=== PATIENT | male | born 1950 | race Caucasian/White ===

== ENCOUNTER → 2021-03-02 | Outpatient (CLI) | payer MEDICAID, MEDICARE ==
[~2021-03-02] MED LIST: AMLO-213 PO; DIAZ5TAB4 PO; HYDR-4354 PO; HYDR25TA4 PO; LOVA20TA2 PO
[2021-03-02 13:27] LABS: BILIRUBIN,URINE SMALL (NEGATIVE); COLOR,URINE DARK YELLOW (YELLOW); LEUKOCYTE ESTERASE ,URINE NEGATIVE (NEGATIVE); NITRITE, URINE NEGATIVE (NEGATIVE); PROTEIN,URINE NEGATIVE (NEGATIVE); UGLUCOSE NEGATIVE (NEGATIVE)
[2021-03-02 13:33] LABS: EOSINOPHILS % (AUTO) 2.4 % (0.0-6.0); HEMATOCRIT 43 % (39-51); HEMOGLOBIN 14.4 g/dL (13.5-17.5); LYMPHOCYTES # (AUTO) 1.2 /CMM (0.8-4.8); MEAN CORPUSCULAR HGB CONC 34 g/dl (31.0-36.0); MEAN CORPUSCULAR VOLUME 93 fL (80-96); MONOCYTES # (AUTO) 0.3 /CMM (0.1-1.30); MONOCYTES % (AUTO) 8.3 % (2.0-12.0); NEUTROPHILS # (AUTO) 2.3 /CMM (1.8-8.9); NEUTROPHILS % (AUTO) 58.3 % (43.0-81.0); PLATELET COUNT (AUTO) 195 /CMM (150-450); RED BLOOD CELL COUNT(AUTO) 4.65 MIL/uL (4.5-6.0); WHITE BLOOD COUNT (AUTO) 3.9 K/uL (4.3-11.0)
[2021-03-02 13:38] LABS: BILIRUBIN,TOTAL 0.4 mg/dL (0.2-1.0); CALCIUM, SERUM 9.1 mg/dL (8.5-10.1); MAGNESIUM 2.2 mg/dL (1.8-2.4); PHOSPHORUS 3.2 mg/dL (2.5-4.9); POTASSIUM 3.6 mmol/L (3.5-5.1); TOTAL PROTEIN, SERUM 7.3 g/dL (6.4-8.2)
[2021-03-02 13:52] LABS: RBC,URINE 0-2 /HPF (0-2)
[2021-03-02 13:53] LABS: BACTERIA,URINE Few /HPF (None Seen); SQUAMOUS EPITHELIAL CELL,UR Few /HPF (None Seen)
[2021-03-02 13:56] LABS: PROSTATE SPECIFIC ANTIGEN SCR 9.01 ng/mL (0.00-4.00); THYROID STIMULATING HORMONE 0.873 uIU/mL (0.358-3.74)
[2021-03-03 04:07] LABS: AFP, TUMOR MARKER 2.9 ng/mL (0.0-8.3)
[2021-03-05 16:07] LABS: RENIN, PLASMA 8.887 ng/mL/hr (0.167-5.380)
== END | disposition home or self-care (01) ==
LOC: LAB 12:15
PROVIDERS: ATTEND Nurse Practitioner Acute Care
DX: K44.9 Diaphragmatic hernia without obstruction or gangrene (principal); M47.814 Spondylosis without myelopathy or radiculopathy, thoracic region; I10 Essential (primary) hypertension; Z00.00 Encounter for general adult medical examination without abnormal findings
CPT/HCPCS: 36415; 71046; 80053-TC; 80061-TC; 81001; 82088; 82105; 82306; 82378; 83735-TC; 83970; 84100-TC; 84153-TC; 84154-TC; 84244; 84402; 84403; 84439-TC; 84443-TC; 85025-TC; 86301

== ENCOUNTER → 2022-08-17 | Outpatient (CLI) | payer MEDICARE ==
[~2022-08-17] MED LIST changes: +BARIUM SULFATE 98% 135 ML SUSP.RECON PO ONE; +OLME20TA23 PO; +PANT40TA49 PO
== END | disposition home or self-care (01) ==
LOC: RAD 10:09
PROVIDERS: ATTEND Surgery
DX: K44.9 Diaphragmatic hernia without obstruction or gangrene (principal); K31.89 Other diseases of stomach and duodenum; R47.02 Dysphasia
CPT/HCPCS: 74230-TC

== ENCOUNTER 2022-08-22 07:00 | Outpatient (CLI) | payer MEDICARE ==
[~2022-08-22 07:00] MED LIST changes: -BARIUM SULFATE 98% 135 ML SUSP.RECON PO ONE; -OLME20TA23 PO; -PANT40TA49 PO
== END 2022-08-22 23:59 | disposition home or self-care (01) ==
LOC: LAB 07:00
PROVIDERS: ATTEND Surgery
DX: Z01.812 Encounter for preprocedural laboratory examination (principal); Z20.822 Contact with and (suspected) exposure to COVID-19
CPT/HCPCS: U0003; C9803

== ENCOUNTER 2022-08-25 05:56 | Inpatient (IN) | payer MEDICARE ==
[~2022-08-25] VITALS: Ht 162.6 cm; Wt 65.8 kg
[2022-08-25] VITALS (15 sets, daily range): BP systolic 116–199; BP diastolic 68–99
[2022-08-25] MEDS ORDERED: BUPIVACAINE MPF W/EPI 0.25% 30 ML VIAL ONE (06:54)
[2022-08-25] MEDS ORDERED: LIDOCAINE HCL/PF 1% 30 ML SDV ONE (06:54)
[2022-08-25] MEDS ORDERED: BUPIVACAINE MPF 0.5% W/EPI INJ 30 ML VIAL ONE (06:55)
[2022-08-25] MEDS ORDERED: HYDROMORPHONE INJ 2 MG/ML DISP.SYRIN ONE (07:30)
[2022-08-25] MEDS ORDERED: ROCURONIUM BROMIDE 50 MG/5 ML ONE ×4 (07:31→13:39)
[2022-08-25 07:39] LABS: CALCIUM, SERUM 9.4 mg/dL (8.5-10.1); CREATININE 0.9 mg/dL (0.6-1.3)
[2022-08-25] MEDS ORDERED: FAMOTIDINE/PF INJ 20 MG/2 ML VIAL IV ONE (07:50)
[2022-08-25] MEDS ORDERED: CLINDAMYCIN 900 MG/6 ML VIAL ONE ×2 (07:51→15:45)
[2022-08-25 09:53] LABS: BASOPHILS % (AUTO) 0.7 % (0.0-2.0); EOSINOPHILS % (AUTO) 1.9 % (0.0-6.0); HEMATOCRIT 43 % (39-51); HEMOGLOBIN 14.4 g/dL (13.5-17.5); LYMPHOCYTES # (AUTO) 1.4 K/uL (0.8-4.8); LYMPHOCYTES % (AUTO) 32.4 % (20.0-44.0); MEAN CORPUSCULAR HGB CONC 34 g/dl (31.0-36.0); MEAN CORPUSCULAR VOLUME 91 fL (80-96); MONOCYTES # (AUTO) 0.4 K/uL (0.1-1.30); MONOCYTES % (AUTO) 8.8 % (2.0-12.0); NEUTROPHILS # (AUTO) 2.5 K/uL (1.8-8.9); NEUTROPHILS % (AUTO) 56.2 % (43.0-81.0); PLATELET COUNT (AUTO) 109 K/uL (150-450); RED BLOOD CELL COUNT(AUTO) 4.74 MIL/uL (4.5-6.0); WHITE BLOOD COUNT (AUTO) 4.4 K/uL (4.3-11.0)
[2022-08-25] MEDS ORDERED: METHYLENE BLUE 10 ML VIAL ONE (10:19)
[2022-08-25] MEDS ORDERED: BACITRACIN ZINC OINT PACKET 1 EA PACKET TP ONE (15:47)
[2022-08-25] MEDS ORDERED: PROPOFOL 100 ML ONE (15:51)
--- NOTE | 2022-08-25 17:02 | NUR ---
Admit to ICU. S/P Gastropexy. also S/p attempt at repair large hiatal hernia, however unsuccessful secondary to size. Surgical complication included esophageal tear which was repaired by surgeon. EGD performed intra op to confirm presence of "No Leak" present which was confirmed with methylin blue injection. PMD aware of significant subcutaneous emphysema around neck and face noted post operatively due to length of surgery. Cont with Vent management @ this time as pt remains intubated for airway protection. Follow up Post op orders at this time
[2022-08-25] MEDS: PROPOFOL 100 ML IV PRN ×2 (17:22→20:21)
--- NOTE | 2022-08-25 18:22 | NUR ---
Non Admin Reason: Propofol duplicate order. Propofol already administered and infusing
[2022-08-25 18:49] LABS: ABG BASE EXCESS -6.9 mmol/L; ABG OXYGEN SATURATION 96.3 % (92.0-98.5); ABG PCO2 36.1 mmHg (35.0-45.0); ABG PH 7.323 (7.350-7.450); ABG PO2 91.9 mmHg (75.0-100.0); AaDO2 151.8 mmHg; COHb 0.8 % (0.5-1.5); MetHb 0.2 % (0.0-1.5); O2Hb 95.3 % (94.0-97.0); PEEP,BG 5 cm H2O; SITE, ABG Right Radial; VENT MODE, BG AC 40%; VT, ABG 500 mL
[2022-08-25] MEDS ORDERED: MEROPENEM 1 G in IV NS 0.9% 100 ML IV SCH ×2 (19:00→21:00)
--- NOTE | 2022-08-25 19:45 | NUR ---
ICU/STRATEGIC COMMUNICATIONS MANAGER CALLED DR BONDS FOR PAIN MEDICATION, PT HAS FACIAL GRIMIS. ALSO INCREASED HEART RATE 110'S AND INCREASED BLOOD PRESSURE WHICH HAS BEEN SINCE ARRIVING ON FLOOR. NO PAIN MEDICATION SEEN AND NOTHING PRN FOR INCREASED BP. ALSO PT'S FACE IS VERY SWOLLEN LOOKED ON XRAY SHOWS THAT THE ETT TUBE IS 7.3 ABOVE ILIA. ASKED TO HAVE THIS ETT TUBE PUSHED BACK 2CM. CAMMIE CALLED BACK SAID YES PUSH BACK ETT TUBE 2CM, LET RT KNOW TO DO THIS. ALSO SAID HE WILL ORDER PAIN MEDS AND PRN BP MEDS. WAIT FOR THIS ORDER.
--- NOTE | 2022-08-25 19:46 | NUR ---
RECEICVED PT INTUBATED 7.5 ETT AT 22CM. XRAY CHECKED AND TUBED IS AT 7.3 CM ABOVE THE ILIA. NOTIFIED RN AND CALLED DR BONDS TO ADJUST TUBE. PUSHED 2CM. ETT IS NOW AT 24CM.
--- NOTE | 2022-08-25 20:30 | NUR ---
ICU/INSPECTOR FABRIC MID LINE WAS PLACED BY NURSE TO THE LEFT UPPER LINE. LINE APPEARS TO BE CLEAN AND DRY.
[2022-08-25] MEDS ORDERED: AZTREONAM 1 G in IV NS 0.9% 100 ML IV SCH (21:00)
[2022-08-25] MEDS ORDERED: hydrALAZINE HCL IV 20 MG VIAL IV PRN (21:00)
[2022-08-25] MEDS ORDERED: IV D5/ 0.9% NACL 1,000 ML IV ONE (21:00)
--- NOTE | 2022-08-25 21:20 | NUR ---
ICU/VEGETABLE HANDLER DR BONDS PLACED ORDER FOR PRN BP AND ALSO PAIN MEDICATION, AND IVP ANTIBIOTICS. CHARGE NURSE AWARE OF THIS NEW ORDERS.
--- NOTE | 2022-08-25 21:21 | NUR ---
I9CU/CNC GRINDER LABS PLACED FOR THE NIGHT BY CAMMIE, ADDED A TRIGLYCERIDE LEVEL DUE TO PT ON DIPRIVAN. PER PROTOCAL LEVEL MUST BE DRAWN.
[2022-08-25] MEDS ORDERED: MEROPENEM 1 G VIAL IV ONE (21:24)
[2022-08-25] MEDS: MEROPENEM 1 G in IV NS 0.9% 100 ML IV SCH (21:29)
[2022-08-25] MEDS: HYDROMORPHONE 1 MG/1 ML DISP.SYRIN IV PRN (21:35)
--- NOTE | 2022-08-25 21:52 | NUR ---
ICU/VASCULAR SURGEON FLACC SCALE OF 10/10 WAS SEEN, REPORTED THIS TO CHARGE NURSE WHO THEN GAVE PRN PAIN MEDICATION OF DILAUDID 1MG IVP. WILL CONTINUE TO MONITOR THIS PT.
--- NOTE | 2022-08-25 22:39 | NUR ---
ICU/STONE AND CONCRETE WASHER SINCE PT GOT PAIN MEDICATION DILAUDID 1MG FOR PAIN, BP WAS DECREASED FROM 190'S DOWN TO 120'S AND HEART RATE DECREASED DOWN FROM 100'S DOWN TO 70'S-80'S. SEDATION WAS MAXED AT 50MCG, THIS WAS TITRATED DOWN BY CHARGE NURSE FROM 50MCG TO NOW 35MCG. WILL MONITOR THIS PT.
[2022-08-25 23:21] LABS: BASOPHILS % (AUTO) 0.1 % (0.0-2.0); HEMATOCRIT 39 % (39-51); HEMOGLOBIN 13.1 g/dL (13.5-17.5); LYMPHOCYTES # (AUTO) 0.7 K/uL (0.8-4.8); LYMPHOCYTES % (AUTO) 5.9 % (20.0-44.0); MEAN CORPUSCULAR HGB CONC 33 g/dl (31.0-36.0); MEAN CORPUSCULAR VOLUME 90 fL (80-96); MONOCYTES # (AUTO) 0.7 K/uL (0.1-1.30); MONOCYTES % (AUTO) 5.8 % (2.0-12.0); NEUTROPHILS # (AUTO) 10.9 K/uL (1.8-8.9); NEUTROPHILS % (AUTO) 88.2 % (43.0-81.0); PLATELET COUNT (AUTO) 183 K/uL (150-450); RED BLOOD CELL COUNT(AUTO) 4.39 MIL/uL (4.5-6.0); WHITE BLOOD COUNT (AUTO) 12.4 K/uL (4.3-11.0)
[2022-08-25 23:31] LABS: CALCIUM, SERUM 8.3 mg/dL (8.5-10.1); CARBON DIOXIDE 29 mmol/L (21-32); CHLORIDE 107 mmol/L (98-107); CREATININE 1.4 mg/dL (0.6-1.3); GLUCOSE 114 mg/dL (74-106); SODIUM SERUM 141 mmol/L (136-145); UREA NITROGEN, BLOOD 20 mg/dL (7-18)
[2022-08-25 23:35] LABS: TRIGLYCERIDES 81 mg/dL (30-150)
[2022-08-25 23:39] LABS: ALANINE AMINOTRANSFERASE 50 U/L (12-78); ALBUMIN 3.1 g/dL (3.4-5.0); ALKALINE PHOSPHATASE 31 U/L (46-116); ASPARTATE AMINOTRANSFERASE 75 U/L (15-37); BILIRUBIN,TOTAL 0.4 mg/dL (0.2-1.0); MAGNESIUM 1.7 mg/dL (1.8-2.4); PHOSPHORUS 2.3 mg/dL (2.5-4.9); TOTAL PROTEIN, SERUM 5.8 g/dL (6.4-8.2)
[2022-08-26] VITALS (30 sets, daily range): BP systolic 104–171; BP diastolic 59–90
--- NOTE | 2022-08-26 00:01 | NUR ---
ICU/PLANT SCIENCES PROFESSOR MRSA OF NARES DONE, SENT TO LAB
--- NOTE | 2022-08-26 00:20 | NUR ---
ICU/DOWEL INSERTING MACHINE OPERATOR CBC, BMP, MAG, PHOS WAS COMPLETED AT 2300 TONELLEN, CAMMIE PLACED ORDERS FOR 2GM MAG FOR 1.7 LEVEL. AND PHOS LEVEL 2.3 IVP TO REPLACE THIS.
[2022-08-26] MEDS: Magnesium 1GM/D5W 100ML PREMIX 100 ML IV SCH ×2 (00:29→01:41)
[2022-08-26] MEDS ORDERED: Sodium Phosphate 30 MMOL in IV NS 0.9% 250 ML IV SCH ×2 (00:30→07:00)
[2022-08-26] MEDS: PROPOFOL 100 ML IV PRN ×6 (01:41→16:08)
--- NOTE | 2022-08-26 01:59 | NUR ---
ICU/SALES REPRESENTATIVE WIRE ROPE CALLED ANGIE ABOUT AN ORDER CAMMIE PLACED FOR SODIUM PHOS IVPB. NO PHARMACY AT NIGHT , ASKED IF OK TO GIVE IN THE MORNING WHEN PHARMACY COMES, BUSINESS MANAGEMENT CONSULTANT ANGIE SAID YES. PHOS LEVEL IS 2.3
[2022-08-26] MEDS: HYDROMORPHONE 1 MG/1 ML DISP.SYRIN IV PRN ×2 (02:56→07:37)
--- NOTE | 2022-08-26 03:15 | NUR ---
ICU/YARD GENERAL CAR SUPERVISOR DILAUDID 1MG IVP BY CHARGE NURSE FOR FLACC PAIN SCALE 10/10. WILL MONITOR THIS PT AND HIS PAIN.
[2022-08-26] MEDS ORDERED: MEROPENEM 1 G VIAL IV ONE (04:41)
[2022-08-26] MEDS: MEROPENEM 1 G in IV NS 0.9% 100 ML IV SCH (05:05)
[2022-08-26 05:13] LABS: BASOPHILS % (AUTO) 0.1 % (0.0-2.0); HEMATOCRIT 37 % (39-51); HEMOGLOBIN 12.8 g/dL (13.5-17.5); LYMPHOCYTES # (AUTO) 0.9 K/uL (0.8-4.8); LYMPHOCYTES % (AUTO) 8.8 % (20.0-44.0); MEAN CORPUSCULAR HGB CONC 34 g/dl (31.0-36.0); MEAN CORPUSCULAR VOLUME 90 fL (80-96); MONOCYTES # (AUTO) 0.7 K/uL (0.1-1.30); MONOCYTES % (AUTO) 7.2 % (2.0-12.0); NEUTROPHILS # (AUTO) 8.3 K/uL (1.8-8.9); NEUTROPHILS % (AUTO) 83.9 % (43.0-81.0); PLATELET COUNT (AUTO) 177 K/uL (150-450); RED BLOOD CELL COUNT(AUTO) 4.17 MIL/uL (4.5-6.0); WHITE BLOOD COUNT (AUTO) 9.9 K/uL (4.3-11.0)
[2022-08-26 05:29] LABS: CALCIUM, SERUM 7.9 mg/dL (8.5-10.1); CARBON DIOXIDE 25 mmol/L (21-32); CHLORIDE 109 mmol/L (98-107); CREATININE 1.1 mg/dL (0.6-1.3); GLUCOSE 127 mg/dL (74-106); MAGNESIUM 2.2 mg/dL (1.8-2.4); POTASSIUM 3.9 mmol/L (3.5-5.1); SODIUM SERUM 140 mmol/L (136-145); UREA NITROGEN, BLOOD 19 mg/dL (7-18)
--- NOTE | 2022-08-26 05:37 | NUR ---
ICU/LICENSED THERAPIST COOLING MEASURES WERE DONE FOR TEMP. 100.2
--- NOTE | 2022-08-26 07:26 | NUR ---
PATIENT REMAINS IN ROOM. SEDATED ON PROPOFOL. RESTRAINTS ON BILATERAL WRISTS, CIRCULATION WNL. ET TUBE MARKED AT 22-24. NASOGASTRIC TUBE CONNECTED TO LOW INTERMITTENT SUCTION. SUTHERLAND CATHETER DRAINING URINE. IV ACCESSES FLUSHING WITH NO REMITTENCE. SAFETY MEASURES IN PLACE WILL CONTINUE PLAN OF CARE AND ANTICIPATE NEEDS.
--- NOTE | 2022-08-26 07:30 | NUR ---
ICU/PRESS BOX CUSTODIAN DR BONDS WAS CALLED AND GIVEN AN UPDATE. MADE AWARE THAT PT IS RUNNING A FEVER 100.8, PT'S HEART RATE IS ELEVATED AND BP CONTINUES TO NEED ATTENTION ALSO PT IS IN PAIN KICKING LEGS IN AIR. SAID TO ORDER A CT OF CHEST WITHOUT CONTRAST. THIS WAS PLACED STAT AND DAY NURSE DORETHA MADE AWARE OF THE NEW ORDERS.
--- NOTE | 2022-08-26 09:34 | NUR ---
no peep per dr. garces. Addendum: 08/26/22 at 0934 by AURA LIPSCOMB RT Amended: Links added.
[2022-08-26] MEDS ORDERED: IV D5/0.45 NACL 1,000 ML IV SCH (10:00)
[2022-08-26] MEDS ORDERED: DIATR MEGLU/DIATRIZOATE SODIUM 120 ML BOTTLE (GASTROGRAPHIN) ONE (10:29)
[2022-08-26] MEDS ORDERED: DIATR MEGLU/DIATRIZOATE SODIUM 30 ML BOTTLE (GASTROGRAPHIN) ONE (11:11)
[2022-08-26] MEDS ORDERED: NALOXONE HCL 0.4 MG/ML AMPUL IV PRN (11:30)
[2022-08-26] MEDS ORDERED: FENTANYL PATCH (100 MCG/HR) 100 MCG/HR PATCH.TD72 TD PRN (11:30)
[2022-08-26] MEDS ORDERED: FENTANYL CITRAT IV 2,500 MCG in IV NS 0.9% 200 ML IV PRN (11:30)
[2022-08-26] MEDS ORDERED: PANT40TA49 PO (12:12)
[2022-08-26] MEDS ORDERED: OLME20TA23 PO (12:12)
[2022-08-26] MEDS ORDERED: MEROPENEM 1 G in IV NS 0.9% 100 ML IV SCH (13:00)
--- NOTE | 2022-08-26 16:00 | NUR ---
PATIENT TRANSFERRED TO [facility] FOR HIGHER LEVEL OF CARE. HAND OFF REPORT GIVEN TO JOHNNY AT RECEIVING FACILITY. PATIENT LEFT [facility] WITH AMBULANCE CREW.
== END 2022-08-26 16:00 | disposition short-term general hospital (02) | DRG 326 ==
LOC: DS 05:56 → ICU 13:33
PROVIDERS: ADMIT Nurse Practitioner Acute Care; ATTEND Internal Medicine
PROC: 0DS68ZZ Reposition Stomach, Via Natural or Artificial Opening Endoscopic (ICD-10-PCS; principal; 2022-08-25)
PROC: 0DQ38ZZ Repair Lower Esophagus, Via Natural or Artificial Opening Endoscopic (ICD-10-PCS; 2022-08-25)
PROC: 05HC33Z Insertion of Infusion Device into Left Basilic Vein, Percutaneous Approach (ICD-10-PCS; 2022-08-25)
PROC: 02HV33Z Insertion of Infusion Device into Superior Vena Cava, Percutaneous Approach (ICD-10-PCS; 2022-08-26)
PROC: B548ZZA Ultrasonography of Superior Vena Cava, Guidance (ICD-10-PCS; 2022-08-26)
DX: K44.0 Diaphragmatic hernia with obstruction, without gangrene (principal); J96.00 Acute respiratory failure, unspecified whether with hypoxia or hypercapnia; K22.3 Perforation of esophagus; I50.32 Chronic diastolic (congestive) heart failure; G93.40 Encephalopathy, unspecified; N17.9 Acute kidney failure, unspecified; T79.7XXA Traumatic subcutaneous emphysema, initial encounter; I11.0 Hypertensive heart disease with heart failure; I27.20 Pulmonary hypertension, unspecified; K21.9 Gastro-esophageal reflux disease without esophagitis; Z82.49 Family history of ischemic heart disease and other diseases of the circulatory system; Z80.8 Family history of malignant neoplasm of other organs or systems; Z85.820 Personal history of malignant melanoma of skin; F17.290 Nicotine dependence, other tobacco product, uncomplicated; Z98.890 Other specified postprocedural states; E78.5 Hyperlipidemia, unspecified; G89.4 Chronic pain syndrome; F43.10 Post-traumatic stress disorder, unspecified; M19.90 Unspecified osteoarthritis, unspecified site; Z79.899 Other long term (current) drug therapy; Z88.0 Allergy status to penicillin; F32.A Depression, unspecified; I89.0 Lymphedema, not elsewhere classified; E88.09 Other disorders of plasma-protein metabolism, not elsewhere classified; K66.0 Peritoneal adhesions (postprocedural) (postinfection)
CPT/HCPCS: 31720; 36410; 36415; 36569; 36600; 71045-TC; 71250-TC; 80048-TC; 80053-TC; 82962-TC; 83735-TC; 84100-TC; 84478-TC; 85025-TC; 87081-TC; 93307-TC; 94003-TC; 94760-TC; 94799-TC; A4216; A6209; A9563; G0378; J0330; J0360; J1100; J1170; J1885; J2185; J2370; J2405; J2704; J3475; J3490; J7030; J7042; J7050; Q9963; Q9968

== ENCOUNTER 2022-10-02 13:58 | Inpatient (IN) | payer MEDICARE, OTHER ==
[~2022-10-02] VITALS: Ht 167.6 cm; Wt 56.7 kg
[~2022-10-02 13:58] MED LIST changes: -AMLO-213 PO; +OLME20TA23 PO; +PANT40TA49 PO
[2022-10-02] MEDS ORDERED: AMIO200T5 GT (14:32)
[2022-10-02] MEDS ORDERED: FERR300L GT (14:32)
[2022-10-02] MEDS ORDERED: ASCO-352 GT (14:32)
[2022-10-02] MEDS ORDERED: APIX5TAB GT (14:32)
[2022-10-02] MEDS ORDERED: LACT-209 GT (14:32)
[2022-10-02] MEDS ORDERED: ACET-868 GT (14:32)
[2022-10-02] MEDS ORDERED: ATOR10TA GT (14:32)
[2022-10-02] MEDS ORDERED: PANT40SU2 GT (14:33)
[2022-10-02] MEDS ORDERED: ALPR0.5T GT (14:33)
[2022-10-02] MEDS ORDERED: TRAM50TA2 GT ×2 (14:33)
[2022-10-02] MEDS ORDERED: FOLI0.4T6 GT (14:33)
[2022-10-02] MEDS ORDERED: SIME40DR2 GT (14:33)
[2022-10-02 15:00] LABS: BASOPHILS % (AUTO) 0.2 % (0.0-2.0); EOSINOPHILS % (AUTO) 1.5 % (0.0-6.0); HEMATOCRIT 31 % (39-51); LYMPHOCYTES % (AUTO) 16.3 % (20.0-44.0); MEAN CORPUSCULAR HGB CONC 32 g/dl (31.0-36.0); MEAN CORPUSCULAR VOLUME 86 fL (80-96); MONOCYTES # (AUTO) 0.5 K/uL (0.1-1.30); NEUTROPHILS # (AUTO) 4.3 K/uL (1.8-8.9); PLATELET COUNT (AUTO) 395 K/uL (150-450); RED BLOOD CELL COUNT(AUTO) 3.65 MIL/uL (4.5-6.0); WHITE BLOOD COUNT (AUTO) 5.9 K/uL (4.3-11.0)
[2022-10-02 15:16] LABS: CALCIUM, SERUM 9.1 mg/dL (8.5-10.1); CARBON DIOXIDE 33 mmol/L (21-32); CHLORIDE 96 mmol/L (98-107); GLUCOSE 116 mg/dL (74-106); POTASSIUM 4.8 mmol/L (3.5-5.1); SODIUM SERUM 130 mmol/L (136-145); UREA NITROGEN, BLOOD 17 mg/dL (7-18)
--- NOTE | 2022-10-02 18:46 | NUR ---
covid swab collected and sent to lab
--- NOTE | 2022-10-02 19:26 | NUR ---
PT AAOX3. SATTING 94% ON O2 3LPM VIA N/C. GTUBE INTACT. ADLS DONE. PT KEPT CLEAN AND DRY. VSS
[2022-10-02] MEDS ORDERED: CEFEPIME 1 GM in IV D5W 50 ML IV SCH (19:30)
[2022-10-02] MEDS ORDERED: ONDANSETRON HCL/PF 4 MG/2 ML VIAL IVP PRN (19:30)
[2022-10-02] MEDS ORDERED: Z GUARD REMEDY 4 OZ OINT TP PRN (19:30)
[2022-10-02] MEDS ORDERED: TRAMADOL HCL 50 MG TABLET GT PRN (20:00)
[2022-10-02] MEDS ORDERED: VANCOMYCIN 1 GM in IV D5W 250 ML IV ONE (20:00)
[2022-10-02] MEDS ORDERED: ACETAMINOPHEN 325 MG TABLET MC PRN (20:00)
[2022-10-02] MEDS ORDERED: FUROSEMIDE 20 MG/2 ML VIAL IV ONE (20:00)
[2022-10-02] MEDS ORDERED: SIMETHICONE 80 MG TAB.CHEW GT PRN (20:00)
[2022-10-02] MEDS ORDERED: JEVITY 1.2 CAL 1,000 ML BOTTLE GT SCH (20:00)
[2022-10-02] MEDS ORDERED: CEFEPIME 1 GM VIAL ONE (21:06)
[2022-10-02] MEDS ORDERED: VANCOMYCIN 1 GM VIAL ONE (21:06)
[2022-10-02] MEDS ORDERED: FUROSEMIDE 40 MG/4 ML VIAL ONE (21:06)
[2022-10-02] MEDS: CEFEPIME 2 GM in IV D5W 100 ML IV SCH (21:23)
[2022-10-02] MEDS ORDERED: ALPRAZOLAM 0.25 MG TABLET ONE (22:20)
[2022-10-02] MEDS ORDERED: TRAMADOL HCL 50 MG TABLET ONE (22:20)
[2022-10-02] MEDS ORDERED: ATORVASTATIN 10 MG TABLET ONE (22:21)
[2022-10-02] MEDS: TRAMADOL HCL 50 MG TABLET GT SCH (22:28)
[2022-10-02] MEDS: ATORVASTATIN 10 MG TABLET GT SCH (22:28)
[2022-10-02] MEDS: ALPRAZOLAM 0.25 MG TABLET PO PRN (22:28)
--- NOTE | 2022-10-03 04:38 | NUR ---
AM LABS DRAWN
[2022-10-03 05:08] LABS: BASOPHILS % (AUTO) 0.1 % (0.0-2.0); HEMATOCRIT 30 % (39-51); LYMPHOCYTES # (AUTO) 0.6 K/uL (0.8-4.8); LYMPHOCYTES % (AUTO) 5.3 % (20.0-44.0); MEAN CORPUSCULAR HGB CONC 33 g/dl (31.0-36.0); MEAN CORPUSCULAR VOLUME 84 fL (80-96); MONOCYTES # (AUTO) 0.6 K/uL (0.1-1.30); MONOCYTES % (AUTO) 5.6 % (2.0-12.0); NEUTROPHILS # (AUTO) 9.5 K/uL (1.8-8.9); PLATELET COUNT (AUTO) 407 K/uL (150-450); RED BLOOD CELL COUNT(AUTO) 3.58 MIL/uL (4.5-6.0); WHITE BLOOD COUNT (AUTO) 10.7 K/uL (4.3-11.0)
[2022-10-03 05:24] LABS: CALCIUM, SERUM 8.8 mg/dL (8.5-10.1); MAGNESIUM 1.8 mg/dL (1.8-2.4); POTASSIUM 4.3 mmol/L (3.5-5.1)
--- NOTE | 2022-10-03 06:37 | NUR ---
PER PT'S REQUEST. PT'S PHONE LABELLED AND CHARGING AT NURSING STATION.
[2022-10-03] MEDS: VANCOMYCIN 0.75 GM in IV D5W 250 ML IV SCH ×2 (08:20→19:58)
--- NOTE | 2022-10-03 08:33 | NUR ---
BED 308-4
--- NOTE | 2022-10-03 08:40 | NUR ---
NURSE NOT AVAILABLE FOR REPORT AT THIS TIME. WILL CALL BACK AGAIN
[2022-10-03] MEDS ORDERED: APIXABAN 5 MG TABLET GT SCH (09:00)
--- NOTE | 2022-10-03 09:13 | NUR ---
REPORT GIVEN TO DENNISE SESAY
--- NOTE | 2022-10-03 09:45 | NUR ---
MS RN ADMITTING NOTES ADMITTED A 72 YO MALE PT TO THE UNIT AT 0930 VIA GURNEY FROM ER BY 2 STAFF, WITH DX OF POSSIBLE PNA. PT IS A/OX3-4, EPISODES OF CONFUSION, HARD OF HEARING ON BOTH SIDES. ABLE TO MAKE NEEDS KNOWN. ORIENTED TO ROOM AND STAFF. V/S TAKEN, STABLE AND RECORDED. PT IS ON 4LPM OXYGEN VIA NC, TOLERATING WELL AT 97% WITH NO ACUTE RESPIRATORY DISTRESS NOTED. IV ACCESS NOTED ON LEFT FOREARM G#20 SALINE LOCKED. LUNGS DIMINISHED UPON AUSCULTATION BILATERALLY WITH PRODUCTIVE COUGH THAT LEAKS THROUGH THE INFECTED TRACH SITE. ABDOMEN SOFT, NON-TENDER, AND NON-DISTENDED WITH + BOWEL SOUNDS ON FOUR QUADRANTS, PATIENT WITH G-TUBE NOTED WITH SUTURES, DRESSING CHANGED AND CLEANED. PHOTOS OF SKIN ISSUES TAKEN AND FILED ON HIS CHART. SAFETY MEASURES IMPLEMENTED: BED PLACED IN LOWEST POSITION WITH SR X2, TRAY TABLE AND CALL LIGHT WITHIN EASY REACH. WILL CONTINUE TO MONITOR PT.
[2022-10-03] MEDS: FOLIC ACID 1 MG TABLET GT SCH (10:47)
[2022-10-03] MEDS: FERROUS SULFATE (325 MG) 325 MG/TAB TABLET GT SCH (10:47)
[2022-10-03] MEDS: AMIODARONE HCL 200 MG TABLET GT SCH (10:48)
[2022-10-03] MEDS: PANTOPRAZOLE 40 MG/PACK PACK GT SCH (10:48)
[2022-10-03] MEDS: ASCORBIC ACID 500 MG TABLET GT SCH (10:48)
[2022-10-03] MEDS: CEFEPIME 2 GM in IV D5W 100 ML IV SCH ×2 (10:50→21:24)
[2022-10-03 12:00] VITALS: BP_SYST 114; BP_SYST 91; BP_DIAS 54; BP_DIAS 58
[2022-10-03] MEDS: FUROSEMIDE 20 MG/2 ML VIAL IV SCH (14:38)
--- NOTE | 2022-10-03 15:00 | NUR ---
RN NOTES - DVT PUMPS APPLIED BILATERALLY
[2022-10-03] MEDS: ALPRAZOLAM 0.25 MG TABLET PO PRN (15:11)
[2022-10-03] MEDS: TRAMADOL HCL 50 MG TABLET GT SCH (15:11)
--- NOTE | 2022-10-03 15:12 | NUR ---
RN NOTES - PATIENT COMPLAINING OF 8/10 BACK PAIN, GIVEN TRAMADOL ORDERED. PATIENT REQUESTED FOR HIS XANAX, PATIENT VERBALIZED AGITATION AND WAS EVIDENCED BY RESTLESSNESS AND IRRITATION.
[2022-10-03 18:09] VITALS: BP 91/54
--- NOTE | 2022-10-03 18:50 | NUR ---
MS RN CLOSING NOTE PATIENT AWAKE IN BED, WITH HEAD OF BED ELEVATED, AOX3-4, EPISODES OF CONFUSION, ABLE TO MAKE NEEDS KNOWN, ON 4LPM OXYGEN INHALATION VIA NC SATURATING AT 97% WITHOUT ANY SOB, WITH RFA ACCESS G#20 SALINE LOCKED, PATENT, FLUSHING WELL. WITH G-TUBE FEEDING JEVITY 1.2 HR AT 60 ML/HR X [address] DENIES PAIN NOR DISCOMFORT AT THIS TIME. ALL NEEDS MET, ALL DUE MEDS GIVEN. SAFETY MEASURES MAINTAINED: BED AT LOWEST AND LOCKED POSITION, SIDE RAILS X2 UP, TRAY TABLE AND CALL LIGHT WITHIN EASY REACH. WILL ENDORSE TO ASSISTANT SPA MANAGER NURSE.
[2022-10-03 20:00] VITALS: BP 134/72
[2022-10-03 20:39] VITALS: BP 105/63
[2022-10-03] MEDS: ATORVASTATIN 10 MG TABLET GT SCH (21:24)
--- NOTE | 2022-10-03 22:00 | NUR ---
RN NOTES - IV SITE INFILTRATION CURRENT IV SITE INFILTRATED. PLACED ICE PACK. RE-INSERTED AT RIGHT HAND #22, PATENT AND INTACT. TOLERATED PROC WELL.
[2022-10-04] MEDS: ALPRAZOLAM 0.25 MG TABLET PO PRN ×2 (00:11→10:34)
--- NOTE | 2022-10-04 05:10 | NUR ---
MS RN OPENING NOTE PATIENT AWAKE IN BED, WITH HEAD OF BED ELEVATED, AOX3-4, ABLE TO MAKE NEEDS KNOWN, ON 4LPM OXYGEN INHALATION VIA NC SATURATING AT 97% WITHOUT ANY SOB, WITH RFA ACCESS G#20 SALINE LOCKED, PATENT, FLUSHING WELL. WITH G-TUBE FEEDING JEVITY 1.2 HR AT 60 ML/HR X [address] DENIES PAIN NOR DISCOMFORT AT THIS TIME. ALL NEEDS MET, ALL DUE MEDS GIVEN. SAFETY MEASURES MAINTAINED: BED AT LOWEST AND LOCKED POSITION, SIDE RAILS X2 UP, TRAY TABLE AND CALL LIGHT WITHIN EASY REACH. WILL CONTINUE TO MONITOR. Addendum: 10/04/22 at 0513 by JONY ROSA RN OPENING NOTES TIMED 10/03/2022; 1999
--- NOTE | 2022-10-04 06:29 | NUR ---
MS RN CLOSING NOTE PATIENT ASLEEP IN BED, WITH HEAD OF BED ELEVATED, AOX3-4, ABLE TO MAKE NEEDS KNOWN, ON 4LPM OXYGEN INHALATION VIA NC SATURATING AT 98% WITHOUT ANY SOB, WITH RFA ACCESS G#20 SALINE LOCKED, PATENT, FLUSHING WELL. WITH G-TUBE FEEDING JEVITY 1.2 HR AT 60 ML/HR X [address] DENIES PAIN NOR DISCOMFORT AT THIS TIME. ALL NEEDS MET, ALL DUE MEDS GIVEN. SAFETY MEASURES MAINTAINED: BED AT LOWEST AND LOCKED POSITION, SIDE RAILS X2 UP, TRAY TABLE AND CALL LIGHT WITHIN EASY REACH. WILL ENDORSE TO NEXT SHIFT RN FOR MEREDITH.
--- NOTE | 2022-10-04 07:08 | NUR ---
WOUND CARE CONSULT: PT PRESENTS WITH CLOSED INCISION WITH ELAINE NEAR G TUBE SITE, LEFT THORACOTOMY SCAR AND LEFT NECK INCISION WITH SUTURES WHICH IS NOTED TO HAVE MUCUS/SECRETIONS, PRESENT ON ADMISSION. PT IS VERY THIN AND BONY. SURGICAL CONSULT TO BE CALLED THIS AM TO DR GILLIAM. RECOMMENDATIONS MADE FOR SKIN PROTECTION. DISCUSSED WITH NURSING STAFF. PT STATES THAT HIS DOCTOR TOLD HIM NOT TO HAVE ANY INTRAVENOUS LINES OR BLOOD DRAWS FROM LEFT ARM BUT HE IS NOT SURE OF REASON WHY. MD IN AGREEMENT WITH PLAN OF CARE.
[2022-10-04 07:27] LABS: CALCIUM, SERUM 8.5 mg/dL (8.5-10.1); CARBON DIOXIDE 27 mmol/L (21-32); CHLORIDE 99 mmol/L (98-107); CREATININE 0.8 mg/dL (0.6-1.3); GLUCOSE 137 mg/dL (74-106); SODIUM SERUM 134 mmol/L (136-145); UREA NITROGEN, BLOOD 20 mg/dL (7-18)
--- NOTE | 2022-10-04 07:56 | NUR ---
RN Receiving Report. Not able to assess pts mental status. Patient in bed with no signs of distress or discomfort. All safety precautions taken, call light and table within reach, bed at lowest position. Patients vital signs stable, oxygen saturation 100%, no signs of respiratory distress. Addendum: 10/04/22 at 0801 by CHALO STAPLETON RN RN Receiving Report. Patient awake in bed, aox4 able to express his concerns. Asked pt how is he doing "thumbs up and a big smile" Introduced myself and made patient aware of call light use. Patient in bed with no signs of distress or discomfort. All safety precautions taken, call light and table within reach, bed at lowest position. Patients vital signs stable, oxygen saturation 100%, no signs of respiratory distress.
[2022-10-04 08:00] VITALS: BP 115/65
[2022-10-04] MEDS: FUROSEMIDE 20 MG/2 ML VIAL IV SCH (08:17)
[2022-10-04] MEDS: VANCOMYCIN 0.75 GM in IV D5W 250 ML IV SCH ×2 (08:17→20:46)
[2022-10-04] MEDS: PANTOPRAZOLE 40 MG/PACK PACK GT SCH (08:17)
[2022-10-04] MEDS: FERROUS SULFATE (325 MG) 325 MG/TAB TABLET GT SCH (08:18)
[2022-10-04] MEDS: FOLIC ACID 1 MG TABLET GT SCH (08:18)
[2022-10-04] MEDS: ASCORBIC ACID 500 MG TABLET GT SCH (08:18)
[2022-10-04] MEDS: CEFEPIME 2 GM in IV D5W 100 ML IV SCH ×2 (09:35→22:18)
[2022-10-04] MEDS: AMIODARONE HCL 200 MG TABLET GT SCH (09:35)
--- NOTE | 2022-10-04 19:30 | NUR ---
MS RN OPENING NOTE RECEIVED PATIENT AWAKE IN BED, WITH HEAD OF BED ELEVATED, AOX3-4, ABLE TO MAKE NEEDS KNOWN, ON 4LPM OXYGEN INHALATION VIA NC SATURATING AT 98% . NO SOB NOTED., WITH RIGHT HAND ACCESS G#22 SALINE LOCKED, PATENT, FLUSHING WELL. WITH G-TUBE FEEDING JEVITY 1.2 HR AT 60 ML/HR X [address]. DENIES PAIN OR DISCOMFORT AT THIS TIME. ALL NEEDS MET. ALL SAFETY MEASURES MAINTAINED: BED AT LOWEST AND LOCKED POSITION, SIDE RAILS X2 UP, TRAY TABLE AND CALL LIGHT WITHIN EASY REACH. WILL CONTINUE TO MONITOR.
--- NOTE | 2022-10-04 19:42 | NUR ---
RN Closing Note Patient AOx4 able to express his concerns Patient stable throughout shift, administered medication and provided care as needed. All safety precautions taken, call light and table within reach. Will endorse to night nurse for continuity of care.
[2022-10-04 20:47] VITALS: BP 111/73
[2022-10-04] MEDS ORDERED: BISACODYL SUPP (10 MG) 10 MG/SUPP.RECT SUPP.RECT RC PRN (21:00)
[2022-10-04] MEDS: ATORVASTATIN 10 MG TABLET GT SCH (21:12)
[2022-10-04] MEDS: TRAMADOL HCL 50 MG TABLET GT SCH (21:12)
[2022-10-05 01:23] VITALS: BP 104/51
[2022-10-05] MEDS: JEVITY 1.2 CAL 1,000 ML BOTTLE GT SCH (01:51)
[2022-10-05 04:24] VITALS: BP 111/67
[2022-10-05 06:36] LABS: CALCIUM, SERUM 8.5 mg/dL (8.5-10.1); CARBON DIOXIDE 30 mmol/L (21-32); CHLORIDE 98 mmol/L (98-107); CREATININE 0.7 mg/dL (0.6-1.3); GLUCOSE 116 mg/dL (74-106); POTASSIUM 3.7 mmol/L (3.5-5.1); SODIUM SERUM 134 mmol/L (136-145); UREA NITROGEN, BLOOD 18 mg/dL (7-18)
--- NOTE | 2022-10-05 06:45 | NUR ---
MS RN CLOSING NOTE PATIENT AWAKE IN BED, WITH HEAD OF BED ELEVATED, AOX3-4, ABLE TO MAKE NEEDS KNOWN, ON 4LPM OXYGEN INHALATION VIA NC SATURATING AT 98% . NO SOB NOTED., WITH RIGHT HAND ACCESS G#22 SALINE LOCKED, PATENT, FLUSHING WELL. WITH G-TUBE FEEDING JEVITY 1.2 HR AT 60 ML/HR X [address]. DENIES PAIN OR DISCOMFORT AT THIS TIME. ALL NEEDS MET.ALL DUE MEDS GIVEN ORDERED. SUPPOSITIRY GIVEN FOR 5 DATD NO BM. PATIENT HAD 4 BM. ALL SAFETY MEASURES MAINTAINED: BED AT LOWEST AND LOCKED POSITION, SIDE RAILS X2 UP, TRAY TABLE AND CALL LIGHT WITHIN EASY REACH. WILL ENDORSE FOR MEREDITH.
--- NOTE | 2022-10-05 08:00 | NUR ---
RN Opening Note. Patient awake in bed, aox4 able to express his concerns. Patient in bed with no signs of distress or discomfort. All safety precautions taken, call light and table within reach, bed at lowest position. Patients vital signs stable, no signs of respiratory distress.
[2022-10-05] MEDS: PANTOPRAZOLE 40 MG/PACK PACK GT SCH (08:27)
[2022-10-05] MEDS: FUROSEMIDE 20 MG/2 ML VIAL IV SCH (08:28)
[2022-10-05] MEDS: FERROUS SULFATE (325 MG) 325 MG/TAB TABLET GT SCH (08:28)
[2022-10-05] MEDS: ASCORBIC ACID 500 MG TABLET GT SCH (08:29)
[2022-10-05] MEDS: ALPRAZOLAM 0.25 MG TABLET PO PRN ×2 (08:29→18:45)
[2022-10-05] MEDS: VANCOMYCIN 0.75 GM in IV D5W 250 ML IV SCH ×2 (08:29→19:57)
[2022-10-05] MEDS: FOLIC ACID 1 MG TABLET GT SCH (08:29)
[2022-10-05] MEDS: AMIODARONE HCL 200 MG TABLET GT SCH (08:29)
[2022-10-05] MEDS: POLYETHYLENE GLYCOL 3350 17 GM POWD.PACK GT SCH (08:34)
[2022-10-05 08:46] VITALS: BP 125/68
[2022-10-05] MEDS: CEFEPIME 2 GM in IV D5W 100 ML IV SCH ×2 (09:01→21:31)
[2022-10-05] MEDS: APIXABAN 5 MG TABLET PO SCH ×2 (10:42→21:35)
--- NOTE | 2022-10-05 18:07 | NUR ---
RN Closing Note Patient AOx4 able to express his concerns Patient stable throughout shift, administered medication and provided care as needed. Patient aware of plan of care and possible discharge tomorrow, agrees. All safety precautions taken, call light and table within reach. Will endorse to night nurse for continuity of care.
--- NOTE | 2022-10-05 19:45 | NUR ---
RN OPENING NOTES RECEIVED PT IN BED, AWAKE, WATCHING TV. AOx4, ABLE TO MAKE NEEDS KNOWN. ON NC 2LPM AND TOLERATING WELL. NO SOB NOTED. NO S/SX OF RESPIRATORY DISTRESS NOTED. IV ACCESS IN DOROTEO #20G. IV IS INTACT, PATENT, AND FLUSHING WELL. SAFETY PRECAUTIONS IN PLACE: BED IN LOWEST, LOCKED POSITION, SIDERAILS UPx2, AND BRAKES ON. TABLE4 AND CALL LIGHT WITHIN REACH. ALL NEEDS MET AT THIS TIME.
[2022-10-05 20:00] VITALS: BP 134/53
[2022-10-05] MEDS: ATORVASTATIN 10 MG TABLET GT SCH (21:31)
[2022-10-05] MEDS: TRAMADOL HCL 50 MG TABLET GT SCH (21:31)
[2022-10-06] MEDS: JEVITY 1.2 CAL 1,000 ML BOTTLE GT SCH (05:46)
[2022-10-06 06:11] LABS: CALCIUM, SERUM 8.9 mg/dL (8.5-10.1); CREATININE 0.8 mg/dL (0.6-1.3); POTASSIUM 3.8 mmol/L (3.5-5.1)
[2022-10-06] MEDS: ALPRAZOLAM 0.25 MG TABLET PO PRN (06:59)
--- NOTE | 2022-10-06 06:59 | NUR ---
RN NOTES ADMINISTERED XANAX FOR ANXIETY PER PT REQUEST. VS WNL.
--- NOTE | 2022-10-06 07:35 | NUR ---
RN CLOSING NOTES PT IN BED, AWAKE, WATCHING TV. AOx4, ABLE TO MAKE NEEDS KNOWN. ON NC 2LPM AND TOLERATING WELL. NO SOB NOTED. NO S/SX OF RESPIRATORY DISTRESS NOTED. IV ACCESS IN DOROTEO #20G. IV IS INTACT, PATENT, AND FLUSHING WELL. ALL ORDERS CARRIED OUT. ALL NEEDS MET. PT KEPT CLEAN AND DRY. SAFETY PRECAUTIONS IN PLACE: BED IN LOWEST, LOCKED POSITION, SIDERAILS UPx2, AND BRAKES ON. TABLE4 AND CALL LIGHT WITHIN REACH. WILL ENDORSE TO ONCOMING SHIFT FOR MEREDITH.
[2022-10-06 08:00] VITALS: BP 129/75
[2022-10-06] MEDS ORDERED: FURO-145 PO (08:54)
[2022-10-06] MEDS ORDERED: CEFE1FRO IV (08:54)
[2022-10-06 09:04] VITALS: BP 129/75
[2022-10-06] MEDS: FERROUS SULFATE (325 MG) 325 MG/TAB TABLET GT SCH (09:04)
[2022-10-06] MEDS: PANTOPRAZOLE 40 MG/PACK PACK GT SCH (09:04)
[2022-10-06] MEDS: FUROSEMIDE 20 MG/2 ML VIAL IV SCH (09:04)
[2022-10-06] MEDS: ASCORBIC ACID 500 MG TABLET GT SCH (09:04)
[2022-10-06] MEDS: AMIODARONE HCL 200 MG TABLET GT SCH (09:04)
[2022-10-06] MEDS: POLYETHYLENE GLYCOL 3350 17 GM POWD.PACK GT SCH (09:04)
[2022-10-06] MEDS: FOLIC ACID 1 MG TABLET GT SCH (09:04)
[2022-10-06] MEDS ORDERED: LEVO500T90 PO (09:05)
[2022-10-06] MEDS: APIXABAN 5 MG TABLET PO SCH (09:05)
[2022-10-06] MEDS: VANCOMYCIN 0.75 GM in IV D5W 250 ML IV SCH (09:09)
[2022-10-06] MEDS: CEFEPIME 2 GM in IV D5W 100 ML IV SCH (10:44)
--- NOTE | 2022-10-06 11:07 | NUR ---
PATIENT IS A/O X4, CH[place], ABLE TO MAKE NEEDS KNOWN. G TUBE RUNNING AT 75 ML/HR, TOLERATING FEEDING WELL. ANTIBIOTICS GIVEN ORDERED. SKIN PHOTOS TAKEN AND DOCUMENTED. PATIENT IS FOR DISCHARGE, HE IS GOING BACK TO [facility], RM 15 B. TRANSPORTATION ARRANGED AT 12 NOON. REPORT GIVEN TO SHAMA MORALES AT 1105.
== END 2022-10-06 13:15 | DRG 177 ==
LOC: ER 14:00 → TRANSITION 17:18 → TELE 10-03 08:41 → MED 10-03 19:25
PROVIDERS: ADMIT Nurse Practitioner Acute Care; ATTEND Internal Medicine
DX: J69.0 Pneumonitis due to inhalation of food and vomit (principal); E43 Unspecified severe protein-calorie malnutrition; I50.33 Acute on chronic diastolic (congestive) heart failure; E87.1 Hypo-osmolality and hyponatremia; D68.59 Other primary thrombophilia; J90 Pleural effusion, not elsewhere classified; I11.0 Hypertensive heart disease with heart failure; I48.0 Paroxysmal atrial fibrillation; Z20.822 Contact with and (suspected) exposure to COVID-19; Z98.890 Other specified postprocedural states; K21.9 Gastro-esophageal reflux disease without esophagitis; K29.70 Gastritis, unspecified, without bleeding; Z85.820 Personal history of malignant melanoma of skin; M19.90 Unspecified osteoarthritis, unspecified site; F43.10 Post-traumatic stress disorder, unspecified; Z88.0 Allergy status to penicillin; Z88.5 Allergy status to narcotic agent; Z79.899 Other long term (current) drug therapy; Z79.01 Long term (current) use of anticoagulants; E78.5 Hyperlipidemia, unspecified; F06.4 Anxiety disorder due to known physiological condition; Z82.49 Family history of ischemic heart disease and other diseases of the circulatory system; Z82.61 Family history of arthritis; I27.20 Pulmonary hypertension, unspecified; Z87.09 Personal history of other diseases of the respiratory system; F32.A Depression, unspecified; Z87.01 Personal history of pneumonia (recurrent)
CPT/HCPCS: 36415; 71045-TC; 71250-TC; 76604-TC; 80048-TC; 80202-TC; 83735-TC; 83880; 84100-TC; 84484-TC; 85025-TC; 85730-TC; 87081-TC; 93307-TC; 97112-TC; 97116-TC; 97530-TC; A6253; A6403; G0378; J0692; J1940; J3370; J7050; J7060

== ENCOUNTER 2022-11-30 13:52 | Outpatient (CLI) | payer MEDICARE, OTHER ==
[~2022-11-30 13:52] MED LIST changes: +ACET-868 GT; +ALPR0.5T GT; +AMIO200T5 GT; +APIX5TAB GT; +ASCO-352 GT; +ATOR10TA GT; +CEFE1FRO IV; -DIAZ5TAB4 PO; +FERR300L GT; +FOLI0.4T6 GT; +FURO-145 PO; -HYDR-4354 PO; -HYDR25TA4 PO; +LACT-209 GT; +LEVO500T90 PO; -LOVA20TA2 PO; -OLME20TA23 PO; +PANT40SU2 GT; -PANT40TA49 PO; +SIME40DR2 GT
[2022-11-30 17:33] LABS: BASOPHILS % (AUTO) 0.4 % (0.0-2.0); EOSINOPHILS % (AUTO) 1.7 % (0.0-6.0); HEMATOCRIT 34 % (39-51); HEMOGLOBIN 10.7 g/dL (13.5-17.5); LYMPHOCYTES % (AUTO) 19.2 % (20.0-44.0); MEAN CORPUSCULAR HGB CONC 32 g/dl (31.0-36.0); MEAN CORPUSCULAR VOLUME 85 fL (80-96); MONOCYTES # (AUTO) 0.5 K/uL (0.1-1.30); MONOCYTES % (AUTO) 9.3 % (2.0-12.0); NEUTROPHILS # (AUTO) 3.5 K/uL (1.8-8.9); NEUTROPHILS % (AUTO) 69.4 % (43.0-81.0); PLATELET COUNT (AUTO) 242 K/uL (150-450); RED BLOOD CELL COUNT(AUTO) 4.02 MIL/uL (4.5-6.0)
[2022-11-30 17:43] LABS: CALCIUM, SERUM 9.1 mg/dL (8.5-10.1); CREATININE 0.9 mg/dL (0.6-1.3); POTASSIUM 3.8 mmol/L (3.5-5.1)
[2022-11-30 17:48] LABS: ALBUMIN 2.7 g/dL (3.4-5.0); BILIRUBIN,TOTAL 0.3 mg/dL (0.2-1.0); MAGNESIUM 2.1 mg/dL (1.8-2.4); TOTAL PROTEIN, SERUM 6.6 g/dL (6.4-8.2)
[2022-11-30 19:47] LABS: FREE T4 (FREE THYROXINE) 1.09 ng/dL (0.76-1.46); THYROID STIMULATING HORMONE 2.404 uIU/mL (0.358-3.74)
== END 2022-11-30 23:59 | disposition home or self-care (01) ==
LOC: LAB 13:52
PROVIDERS: ATTEND Nurse Practitioner Acute Care
DX: Z01.812 Encounter for preprocedural laboratory examination (principal); K22.3 Perforation of esophagus
CPT/HCPCS: 36415; 80053-TC; 83735-TC; 84100-TC; 84439-TC; 84443-TC; 85025-TC

== ENCOUNTER 2023-02-08 12:28 | Emergency (ER) | payer OTHER ==
[~2023-02-08] VITALS: Ht 167.6 cm; Wt 63.5 kg
--- NOTE | 2023-02-08 12:30 | NUR ---
RECEIVED PT 72 YRS MALE CAME BY PRMDIC FROM HOME GT CAME OUT AND OPEN PTAWAKE AND ALERT NO SOB DR. CASILLAS AT BED SIDE IN TRIGE AREA INSERTED GT STANDER BALLOON FR 18 (6.0MM )
[2023-02-08] MEDS ORDERED: DIATR MEGLU/DIATRIZOATE SODIUM 30 ML BOTTLE (GASTROGRAPHIN) PO ONE (13:00)
[2023-02-08] MEDS ORDERED: DIATR MEGLU/DIATRIZOATE SODIUM 30 ML BOTTLE (GASTROGRAPHIN) ONE (13:17)
[2023-02-08 13:26] VITALS: BP 100/63
--- NOTE | 2023-02-08 13:26 | NUR ---
BLOOD DROW AND SENT TO LAB
--- NOTE | 2023-02-08 13:27 | NUR ---
BLOOD DROW BY DR. CASILLAS
[2023-02-08 13:37] LABS: BASOPHILS % (AUTO) 0.4 % (0.0-2.0); EOSINOPHILS % (AUTO) 1.9 % (0.0-6.0); HEMATOCRIT 31 % (39-51); LYMPHOCYTES # (AUTO) 0.8 K/uL (0.8-4.8); LYMPHOCYTES % (AUTO) 17.8 % (20.0-44.0); MEAN CORPUSCULAR HGB CONC 32 g/dl (31.0-36.0); MEAN CORPUSCULAR VOLUME 81 fL (80-96); MONOCYTES # (AUTO) 0.6 K/uL (0.1-1.30); MONOCYTES % (AUTO) 12.6 % (2.0-12.0); NEUTROPHILS # (AUTO) 3.2 K/uL (1.8-8.9); NEUTROPHILS % (AUTO) 67.3 % (43.0-81.0); PLATELET COUNT (AUTO) 191 K/uL (150-450); WHITE BLOOD COUNT (AUTO) 4.7 K/uL (4.3-11.0)
--- NOTE | 2023-02-08 13:53 | NUR ---
GI CONTRAST WAS GIVEN VIA GT KUB DONE AT BED SIDE
[2023-02-08 14:07] LABS: CALCIUM, SERUM 9.7 mg/dL (8.5-10.1); CARBON DIOXIDE 33 mmol/L (21-32); CHLORIDE 106 mmol/L (98-107); CREATININE 1.1 mg/dL (0.6-1.3); GLUCOSE 97 mg/dL (74-106); POTASSIUM 3.8 mmol/L (3.5-5.1); SODIUM SERUM 144 mmol/L (136-145); UREA NITROGEN, BLOOD 44 mg/dL (7-18)
[2023-02-08 14:18] LABS: ALANINE AMINOTRANSFERASE 29 U/L (12-78); ALBUMIN 3.3 g/dL (3.4-5.0); ALKALINE PHOSPHATASE 63 U/L (46-116); ASPARTATE AMINOTRANSFERASE 29 U/L (15-37); BILIRUBIN,TOTAL 0.3 mg/dL (0.2-1.0); TOTAL PROTEIN, SERUM 6.7 g/dL (6.4-8.2)
== END 2023-02-08 14:36 | disposition home or self-care (01) ==
LOC: ER 12:30
DX: K94.23 Gastrostomy malfunction (principal); I10 Essential (primary) hypertension; E78.5 Hyperlipidemia, unspecified; K21.9 Gastro-esophageal reflux disease without esophagitis; Z88.8 Allergy status to other drugs, medicaments and biological substances; Z60.2 Problems related to living alone; Z79.899 Other long term (current) drug therapy
CPT/HCPCS: 99284; 43762; 74018; 85025; 36415; 80053; 84134; Q9963 ×2

== ENCOUNTER 2023-06-04 10:31 | Outpatient (CLI) | payer OTHER ==
[~2023-06-04 10:31] MED LIST changes: +TDAP [DIPH/PERTUSSIS/TET] 0.5 ML VIAL IM ONE
[2023-06-04 11:39] LABS: ALBUMIN 2.5 g/dL (3.4-5.0); BILIRUBIN,TOTAL 0.2 mg/dL (0.2-1.0); CALCIUM, SERUM 9.6 mg/dL (8.5-10.1); CREATININE 0.6 mg/dL (0.6-1.3); PHOSPHORUS 3.3 mg/dL (2.5-4.9); POTASSIUM 4.5 mmol/L (3.5-5.1)
[2023-06-04 11:42] LABS: BASOPHILS % (AUTO) 0.4 % (0.0-2.0); EOSINOPHILS # (AUTO) 0.1 K/uL (0.0-0.7); EOSINOPHILS % (AUTO) 0.8 % (0.0-6.0); HEMATOCRIT 31 % (39-51); HEMOGLOBIN 10.2 g/dL (13.5-17.5); LYMPHOCYTES # (AUTO) 1.4 K/uL (0.8-4.8); LYMPHOCYTES % (AUTO) 16.3 % (20.0-44.0); MEAN CORPUSCULAR HEMOGLOBIN 27 PG (26.0-33.0); MEAN CORPUSCULAR HGB CONC 33 g/dl (31.0-36.0); MEAN CORPUSCULAR VOLUME 82 fL (80-96); MONOCYTES # (AUTO) 0.8 K/uL (0.1-1.30); MONOCYTES % (AUTO) 9.5 % (2.0-12.0); NEUTROPHILS # (AUTO) 6.4 K/uL (1.8-8.9); PLATELET COUNT (AUTO) 568 K/uL (150-450); RED BLOOD CELL COUNT(AUTO) 3.76 MIL/uL (4.5-6.0); RED CELL DISTRIBUTION WIDTH 16.7 % (11.5-15.0); WHITE BLOOD COUNT (AUTO) 8.8 K/uL (4.3-11.0)
[2023-06-04 12:06] LABS: FREE T4 (FREE THYROXINE) 1.26 ng/dL (0.76-1.46); THYROID STIMULATING HORMONE 1.037 uIU/mL (0.358-3.74)
== END 2023-06-04 23:59 | disposition home or self-care (01) ==
LOC: RAD 10:31 → CT 23:59
PROVIDERS: ATTEND Nurse Practitioner Acute Care
DX: Z00.00 Encounter for general adult medical examination without abnormal findings (principal); I10 Essential (primary) hypertension; E78.5 Hyperlipidemia, unspecified; K21.9 Gastro-esophageal reflux disease without esophagitis; Z79.899 Other long term (current) drug therapy
CPT/HCPCS: 36415; 71250-TC; 80053-TC; 83735-TC; 84100-TC; 84134-TC; 84439-TC; 84443-TC; 85025-TC; 90715

== ENCOUNTER 2023-08-05 06:04 | Emergency (ER) | payer OTHER ==
[~2023-08-05] VITALS: Ht 172.7 cm; Wt 54.4 kg
[~2023-08-05 06:04] MED LIST changes: -TDAP [DIPH/PERTUSSIS/TET] 0.5 ML VIAL IM ONE
[2023-08-05] MEDS ORDERED: IV NS 0.9% 1,000 ML BAG IV ONE ×2 (06:30→16:00)
[2023-08-05] MEDS ORDERED: ONDANSETRON HCL/PF 4 MG/2 ML VIAL IVP ONE ×2 (06:30→20:30)
[2023-08-05] MEDS ORDERED: MORPHINE SULFATE INJ 2 MG/ML DISP.SYRIN IV ONE (06:30)
[2023-08-05] MEDS ORDERED: ONDANSETRON HCL/PF 4 MG/2 ML VIAL ONE ×4 (06:35→20:05)
[2023-08-05] MEDS ORDERED: MORPHINE SULFATE INJ 4 MG/ML DISP.SYRIN ONE (06:36)
[2023-08-05 06:39] LABS: BASOPHILS % (AUTO) 0.2 % (0.0-2.0); LYMPHOCYTES # (AUTO) 0.3 K/uL (0.8-4.8); MONOCYTES # (AUTO) 0.2 K/uL (0.1-1.30); MONOCYTES % (AUTO) 1.6 % (2.0-12.0); RED CELL DISTRIBUTION WIDTH 18.8 % (11.5-15.0); WHITE BLOOD COUNT (AUTO) 12.3 K/uL (4.3-11.0)
[2023-08-05 06:48] LABS: HEMATOCRIT 35 % (39-51); LYMPHOCYTES % (AUTO) 2.4 % (20.0-44.0); MEAN CORPUSCULAR HEMOGLOBIN 24 PG (26.0-33.0); MEAN CORPUSCULAR HGB CONC 31 g/dl (31.0-36.0); MEAN CORPUSCULAR VOLUME 78 fL (80-96); NEUTROPHILS # (AUTO) 11.8 K/uL (1.8-8.9); NEUTROPHILS % (AUTO) 95.8 % (43.0-81.0); PLATELET COUNT (AUTO) 379 K/uL (150-450); RED BLOOD CELL COUNT(AUTO) 4.51 MIL/uL (4.5-6.0)
[2023-08-05 06:51] LABS: PARTIAL THROMBOPLASTIN TIME 27.6 SEC (24.3-34.3); PROTHROMBIN TIME 10.6 SECS (9.2-11.1)
[2023-08-05 07:04] LABS: CALCIUM, SERUM 11.1 mg/dL (8.5-10.1); CARBON DIOXIDE 29 mmol/L (21-32); CHLORIDE 99 mmol/L (98-107); CREATININE 1.1 mg/dL (0.6-1.3); GLUCOSE 201 mg/dL (74-106); POTASSIUM 4.1 mmol/L (3.5-5.1); SODIUM SERUM 139 mmol/L (136-145); UREA NITROGEN, BLOOD 22 mg/dL (7-18)
[2023-08-05 07:10] LABS: ALANINE AMINOTRANSFERASE 29 U/L (12-78); ALBUMIN 3.5 g/dL (3.4-5.0); ALKALINE PHOSPHATASE 109 U/L (46-116); ASPARTATE AMINOTRANSFERASE 15 U/L (15-37); BILIRUBIN,DIRECT 0.1 mg/dL (0.0-0.2); BILIRUBIN,TOTAL 0.4 mg/dL (0.2-1.0); LIPASE 37 U/L (16-77)
[2023-08-05] MEDS ORDERED: IV NS 0.9% 250 ML IV ONE (07:36)
[2023-08-05] MEDS ORDERED: IOHEXOL-300 100 ML VIAL IV ONE (07:36)
[2023-08-05] MEDS ORDERED: HYDROMORPHONE 1 MG/1 ML DISP.SYRIN ONE ×4 (07:41→20:10)
[2023-08-05] MEDS ORDERED: ONDANSETRON HCL/PF - ER 4 MG/2 ML VIAL IV ONE ×2 (08:00→18:00)
[2023-08-05] MEDS ORDERED: HYDROMORPHONE 1 MG/1 ML DISP.SYRIN IV ONE ×2 (08:00→11:30)
[2023-08-05] MEDS ORDERED: NUTR250L61 GT (08:44)
[2023-08-05] MEDS ORDERED: DOCU50LI GT (08:44)
[2023-08-05 09:29] LABS: APPEARANCE,URINE CLOUDY (CLEAR); BILIRUBIN,URINE NEGATIVE (NEGATIVE); BLOOD, URINE TRACE-INTA Ery/uL (NEGATIVE); COLOR,URINE YELLOW (YELLOW); KETONES,URINE NEGATIVE (NEGATIVE); LEUKOCYTE ESTERASE ,URINE NEGATIVE (NEGATIVE); NITRITE, URINE NEGATIVE (NEGATIVE); PH,URINE 8.5 (5.0-8.0); PROTEIN,URINE TRACE mg/dl (NEGATIVE); UGLUCOSE NEGATIVE (NEGATIVE)
[2023-08-05 10:18] LABS: ADD URINE CULTURE NO; BACTERIA,URINE Few /HPF (None Seen); RBC,URINE 0-2 /HPF (0-2); SQUAMOUS EPITHELIAL CELL,UR Rare /HPF (None Seen); URINE AMORPHOUS PHOSPHATES Many /HPF (None Seen); WBC,URINE 0-2 /HPF (0-3)
[2023-08-05] MEDS ORDERED: LIDOCAINE VISCOUS 2% UD 15 ML UDC ONE (10:56)
[2023-08-05] MEDS ORDERED: PROCHLORPERAZINE EDISYLATE 10 MG/2 ML VIAL ONE (11:10)
[2023-08-05] MEDS ORDERED: PROCHLORPERAZINE EDISYLATE 10 MG/2 ML VIAL IVP ONE (11:30)
[2023-08-05] MEDS ORDERED: PHENOL-PHENOLATE CHLORASEPTIC 177 ML SPRAY MM ONE (11:30)
[2023-08-05] MEDS ORDERED: TETRACAINE/BENZOCAINE/BUTAMBEN 56 GM SPRAY TP ONE (11:30)
[2023-08-05] MEDS ORDERED: LORAZEPAM INJ 2 MG/ML VIAL ONE ×2 (11:36→13:31)
[2023-08-05] MEDS ORDERED: LORAZEPAM INJ 2 MG/ML VIAL IV ONE ×3 (12:30→13:30)
[2023-08-05] MEDS ORDERED: LIDOCAINE VISCOUS 2% UD 15 ML UDC MM ONE (12:30)
[2023-08-05] MEDS ORDERED: IV LR 1000 ML 1,000 ML IV PRN (12:30)
[2023-08-05] MEDS: HYDROMORPHONE 1 MG/1 ML DISP.SYRIN IV PRN ×2 (17:29→20:18)
[2023-08-05 18:06] VITALS: BP 145/116; TEMP 98.1; O2SAT 100
== END 2023-08-05 20:30 | disposition short-term general hospital (02) ==
LOC: ER 06:06
DX: K56.609 Unspecified intestinal obstruction, unspecified as to partial versus complete obstruction (principal); R11.10 Vomiting, unspecified; I10 Essential (primary) hypertension; E78.5 Hyperlipidemia, unspecified; K21.9 Gastro-esophageal reflux disease without esophagitis; Z88.0 Allergy status to penicillin; Z88.5 Allergy status to narcotic agent; Z60.2 Problems related to living alone
CPT/HCPCS: 99285; 71260; 96361; 96374; 96375; 93005; 74250; 74177; 85025; 80048; 83690; 80076; 81001; 36415; 84484; 85730; 96376; J2060 ×2; J0780; J2270; J2405 ×6; J7120; J7030 ×2; J7050; Q9967; J1170 ×4

== ENCOUNTER 2024-05-13 11:48 | Outpatient (CLI) | payer SELFPAY ==
[~2024-05-13 11:48] MED LIST changes: -ALPR0.5T GT; -AMIO200T5 GT; -APIX5TAB GT; -ASCO-352 GT; -ATOR10TA GT; -CEFE1FRO IV; +DOCU50LI GT; -FERR300L GT; -FOLI0.4T6 GT; -FURO-145 PO; -LACT-209 GT; -LEVO500T90 PO; +NUTR250L61 GT; -PANT40SU2 GT
== END 2024-05-13 23:59 | disposition home or self-care (01) ==
LOC: MSC 11:48
PROVIDERS: ATTEND Anesthesiology
DX: G89.22 Chronic post-thoracotomy pain (principal); R10.13 Epigastric pain; M54.9 Dorsalgia, unspecified; F11.20 Opioid dependence, uncomplicated

== ENCOUNTER 2025-07-29 16:31 | Outpatient (CLI) | payer OTHER ==
[2025-07-29 18:25] LABS: PLATELET COUNT (AUTO) 234 K/uL (150-450); RED BLOOD CELL COUNT(AUTO) 5.06 MIL/uL (4.5-6.0); RED CELL DISTRIBUTION WIDTH 16.0 % (11.5-15.0); WHITE BLOOD COUNT (AUTO) 5.6 K/uL (4.3-11.0)
[2025-07-29 18:40] LABS: IRON, SERUM 67.0 ug/dl (50-175)
[2025-07-29 18:46] LABS: LDL 102.0 mg/dL (0-99)
[2025-07-29 18:47] LABS: ASPARTATE AMINOTRANSFERASE 20.0 U/L (15-37); CALCIUM, SERUM 9.1 mg/dL (8.5-10.1); CREATININE 1.2 mg/dL (0.6-1.3); NT-PRO BNP 88.0 pg/mL (0-125); PHOSPHORUS 1.9 mg/dL (2.5-4.9); SODIUM SERUM 141.0 mmol/L (136-145); TOTAL PROTEIN, SERUM 7.3 g/dL (6.4-8.2); UREA NITROGEN, BLOOD 21.0 mg/dL (7-18)
[2025-07-31 08:11] LABS: *TESTOSTERONE, SERUM 648 ng/dL (264-916); FOLIC ACID > 20.0 ng/mL (>3.0)
[2025-08-03 14:11] LABS: *TESTOSTERONE, FREE (DIRECT) 3.7 pg/mL (6.6-18.1)
[2025-08-03 22:09] LABS: VITAMIN B1 THIAMINE,WB 177.2 nmol/L (66.5-200.0)
== END 2025-07-29 23:59 | disposition home or self-care (01) ==
LOC: LAB 16:31
PROVIDERS: ATTEND Nurse Practitioner Acute Care
DX: Z00.00 Encounter for general adult medical examination without abnormal findings (principal)
CPT/HCPCS: 36415; 80053-TC; 80061-TC; 82607-TC; 83540-TC; 83735-TC; 83880; 84100-TC; 84402-TC; 84403; 84425; 84439-TC; 84443-TC; 85025-TC